=== PATIENT | male | born 1985 | race Caucasian/White ===

== ENCOUNTER 2017-02-12 15:36 | Emergency (ER) | payer SELFPAY ==
--- NOTE | 2017-02-12 16:20 | ER Document Report ---
ED Medical Screen (RME) - General Stated Complaint: PSYCH EVALUATION,TOOTH PAIN Mode of Arrival: Ambulatory Information source: Patient Notes: Patient presents to the emergency department with complaints of suicide ideations. Reports he has thoughts of killing himself. Denies previous suicide attempt. Patient is homeless. Patient has history of bipolar does not take any medications. I have greeted and performed a rapid initial assessment of this patient. A comprehensive ED assessment and evaluation of the patient, analysis of test results and completion of the medical decision making process will be conducted by additional ED providers. TRAVEL OUTSIDE OF THE [place] IN LAST 30 DAYS: No - Related Data Allergies/Adverse Reactions: No Known Allergies Allergy (Unverified 06/23/16 18:33) Past Medical History Endocrine Medical History: Reports: Hx Diabetes Mellitus Type 2 Psychiatric Medical History: Reports: Hx Attention Deficit Hyperactivity Disorder Physical Exam - Vital signs Vitals: Temp Pulse Resp BP Pulse Ox 98.3 F 113 H 14 143/89 H 97 02/12/17 15:39 02/12/17 15:39 02/12/17 15:39 02/12/17 15:39 02/12/17 15:39 Course - Vital Signs Vital signs: Temp Pulse Resp BP Pulse Ox 98.3 F 113 H 14 143/89 H 97 02/12/17 15:39 02/12/17 15:39 02/12/17 15:39 02/12/17 15:39 02/12/17 15:39
--- NOTE | 2017-02-12 18:39 | ER Document Report ---
ED Psych Disorder / Suicide <MIGNON TRACY - Last Filed: 02/12/17 20:36> - General Time seen by provider: 18:15 Mode of Arrival: Ambulatory Information source: Patient TRAVEL OUTSIDE OF THE [place] IN LAST 30 DAYS: No - HPI Patient complains to provider of: Homicidal ideation, Suicidal ideation Onset: Other - see HPI note <CLARIIVONE - Last Filed: 02/12/17 21:08> - General Chief Complaint: Psych Problem Stated Complaint: PSYCH EVALUATION,TOOTH PAIN Notes: The patient additionally had complained at triage about a toothache. When asked about this it is his right lower third molar and it has been hurting for several weeks. (MIGNON TRACY) Patient is a 31 year old male presenting to the ED for suicidal ideation. Patient states he has had depression for the past 3-4 months but it has increased over the past month. Patient states that he has researched methods of suicide for the past month and has not attempted any method. Patient states he has a history of HI and he cut himself with a razor; patient cut the name "Tiffany" into his leg 2 months ago. Patient called [facility] and was told to come here; patient states he knew about [facility] from his grandfather. Patient states he lives with his brother however, triage and RME note states the patient is homeless. Patient also told triage that he has a history of bipolar disorder and is not currently on any medications. Patient states he smokes 1-2 cigarettes per day, drinks EtOH occasionally, smokes marijuana occasionally, and drinks copious amounts of over the counter cough syrup such as Robitussin and/or Delsym DM. When asked if he knew why he had a fast heart rate upon arrival, patient states he drank a bottle of Delsym DM about 4 hours prior to arrival. Patient has no known allergies. (IVONE MONTAGUE) - Related Data Allergies/Adverse Reactions: No Known Allergies Allergy (Unverified 06/23/16 18:33) Past Medical History - General Information source: Patient - Social History Smoking Status: Current Every Day Smoker Cigarette use (# per day): Yes - 1-2 Chew tobacco use (# tins/day): No Frequency of alcohol use: Occasional Drug Abuse: Marijuana, Other - cough syrup Family History: None Patient has suicidal ideation: Yes Patient has homicidal ideation: Yes Endocrine Medical History: Reports: Hx Diabetes Mellitus Type 2 - no meds, diet controlled Psychiatric Medical History: Reports: Hx Attention Deficit Hyperactivity Disorder, Hx Bipolar Disorder Surgical Hx: Negative <IVONE MONTAGUE - Last Filed: 02/12/17 21:08> Review of Systems - Review of Systems Constitutional: No symptoms reported EENT: No symptoms reported Cardiovascular: No symptoms reported Respiratory: No symptoms reported Gastrointestinal: No symptoms reported Genitourinary: No symptoms reported Male Genitourinary: No symptoms reported Musculoskeletal: No symptoms reported Skin: No symptoms reported Hematologic/Lymphatic: No symptoms reported Neurological/Psychological: See HPI, Depression, Suicidal ideation -: Yes All other systems reviewed and negative <IVONE MONTAGUE - Last Filed: 02/12/17 21:08> Physical Exam - HEENT Mouth/Lips: Other - Several severely decayed teeth. The right lower third molar has the front half broken off in the back part is partially hollowed out. It is a little tender. There is no gum edema. The second molar adjacent to that is broken off at the gumline. Several other molars are broken off as well. <MIGNON TRACY - Last Filed: 02/12/17 20:36> - Vital signs Interpretation: Tachycardic - General General appearance: Appears well, Alert In distress: Mild - HEENT Head: Normocephalic, Atraumatic Eyes: Normal Pupils: PERRL Mucous membranes: Moist - Respiratory Respiratory status: No respiratory distress Chest status: Nontender Breath sounds: Normal Chest palpation: Normal - Cardiovascular Rhythm: Regular, Tachycardia Heart sounds: Normal auscultation Murmur: No - Abdominal Inspection: Normal Distension: No distension Bowel sounds: Normal Tenderness: Nontender Organomegaly: No organomegaly - Back Back: Normal, Nontender - Extremities General upper extremity: Normal inspection, Normal ROM, Normal strength General lower extremity: Normal ROM, Normal strength, Other - healed superficial cuts into the right thigh that spell the name Tiffany - Neurological Neuro grossly intact: Yes Cognition: Normal Orientation: AAOx4 Gustavo Coma Scale Eye Opening: Spontaneous Gustavo Coma Scale Verbal: Oriented Gustavo Coma Scale Motor: Obeys Commands [place] Coma Scale Total: 15 Speech: Normal - Psychological Associated symptoms: Normal affect, Anxious - Skin Skin Temperature: Warm Skin Moisture: Dry <IVONE MONTAGUE - Last Filed: 02/12/17 21:08> - Vital signs Vitals: Temp Pulse Resp BP Pulse Ox 98.3 F 113 H 14 143/89 H 97 02/12/17 15:39 02/12/17 15:39 02/12/17 15:39 02/12/17 15:39 02/12/17 15:39 Course - Laboratory Result Diagrams: 02/12/17 18:25 02/12/17 18:25 - EKG Interpretation by [place] EKG shows normal: Sinus rhythm, [place], Intervals, QRS Complexes, ST-T Waves Rate: Tachycardia - 121 <MIGNON TRACY - Last Filed: 02/12/17 20:36> - Laboratory Result Diagrams: 02/12/17 18:25 02/12/17 18:25 <IVONE MONTAGUE - Last Filed: 02/12/17 21:08> - Vital Signs Vital signs: Temp Pulse Resp BP Pulse Ox 98.3 F 113 H 14 143/89 H 97 02/12/17 15:39 02/12/17 15:39 02/12/17 15:39 02/12/17 15:39 02/12/17 15:39 - Laboratory Laboratory results interpreted by md: 02/12/17 02/12/17 17:57 18:25 POC Glucose 134 H Calcium 10.5 H Salicylates < 1.0 L Acetaminophen < 10 L Discharge <MIGNON TRACY - Last Filed: 02/12/17 20:36> <IVONE MONTAGUE - Last Filed: 02/12/17 21:08> - Discharge Clinical Impression: Suicidal ideation, Substance abuse Depression Qualifiers: Depression Type: unspecified Qualified Code(s): F32.9 - Major depressive disorder, single episode, unspecified Condition: Stable Disposition: PSYCH HOSP/UNIT Scribe Documentation - Scribe Written by Scribe:: Ivone Montague 02/12/17 18:50 acting as scribe for :: Cesar <IVONE MONTAGUE - Last Filed: 02/12/17 21:08>
[2017-02-12 18:58] LABS: ABSOLUTE BASOPHILS # (AUTO) 0.1 10^3/uL (0.0-0.2); ABSOLUTE EOSINOPHILS # (AUTO) 0.2 10^3/uL (0.0-0.6); ABSOLUTE LYMPHOCYTES (AUTO) 2.6 10^3/uL (0.5-4.7); ABSOLUTE MONOCYTES (AUTO) 0.5 10^3/uL (0.1-1.4); ABSOLUTE NEUT (AUTO) 5.3 10^3/uL (1.7-8.2); BASOPHILS % (AUTO) 0.9 % (0-2); EOSINOPHILS % (AUTO) 2.1 % (0-6); HEMATOCRIT 44.8 % (37.9-51.0); HEMOGLOBIN 15.5 g/dL (13.5-17.0); HGB HCT DIFFERENCE 1.7; LYMPHOCYTES % (AUTO) 29.8 % (13-45); MEAN CORPUSCULAR HEMOGLOBIN 29.7 pg (27.0-33.4); MEAN CORPUSCULAR HGB CONC 34.6 g/dL (32.0-36.0); MEAN CORPUSCULAR VOLUME 86 fl (80-97); RED BLOOD COUNT 5.22 10^6/uL (4.35-5.55); RED CELL DISTRIBUTION WIDTH 13.2 % (11.5-14.0); SEGMENTED NEUTROPHILS % (AUTO) 61.2 % (42-78); WHITE BLOOD COUNT 8.7 10^3/uL (4.0-10.5)
[2017-02-12 19:24] LABS: ALANINE AMINOTRANSFERASE 35 U/L (21-72); ALBUMIN 4.8 g/dL (3.5-5.0); ALCOHOL < 10 mg/dL (NONE DETECTED); ALKALINE PHOSPHATASE 73 U/L (38-126); ANION GAP 17 (5-19); ASPARTATE AMINO TRANSFERASE 25 U/L (17-59); BILIRUBIN,DIRECT 0.3 mg/dL (0.0-0.4); BILIRUBIN,TOTAL 0.6 mg/dL (0.2-1.3); BLOOD UREA NITROGEN 16 mg/dL (7-20); CALCIUM 10.5 mg/dL (8.4-10.2); CARBON DIOXIDE 26 mmol/L (22-30); CHLORIDE 102 mmol/L (98-107); CREATININE RESULT 0.82 mg/dL (0.52-1.25); GLUCOSE 101 mg/dL (75-110); POTASSIUM 4.2 mmol/L (3.6-5.0); SODIUM 144.8 mmol/L (137-145); TOTAL PROTEIN 7.9 g/dL (6.3-8.2)
--- NOTE | 2017-02-13 00:15 | EKG REPORT ---
SEVERITY:- OTHERWISE NORMAL ECG - SINUS TACHYCARDIA : Confirmed by: Lowell Tilley 13-Feb-2017 00:15:05
[2017-02-13 05:20] LABS: APPEARANCE,URINE CLEAR; BILIRUBIN,URINE NEGATIVE (NEGATIVE); GLUCOSE, URINE 50 mg/dL (NEGATIVE); KETONES,URINE NEGATIVE (NEGATIVE); LEUKOCYTE ESTERASE,URINE NEGATIVE (NEGATIVE); NITRITE,URINE NEGATIVE (NEGATIVE); PROTEIN,URINE NEGATIVE (NEGATIVE); URINE SPECIFIC GRAVITY 1.028; UROBILINOGEN,URINE NEGATIVE mg/dL (<2.0)
[2017-02-13 05:33] LABS: URINE BARBITURATES SCREEN NEGATIVE; URINE METHADONE SCREEN NEGATIVE; URINE OPIATES LOW UNCONFIRMED POSITIVE; URINE PHENCYCLIDINE SCREEN UNCONFIRMED POSITIVE
--- NOTE | 2017-02-13 09:05 | ER Document Report ---
Doctor's Note Notes: 02/13/17 09:04 Provider note: The patient is a 31-year-old man with a history of bipolar affective disorder that presented to the emergency room with suicidal ideation in the setting of depression for the past 3-4 months. The patient had reported abuse of over-the- counter cough medicines. This morning, the patient is resting comfortably and in no distress. He is alert and oriented 3. He denies complaints at this time. On physical exam, he does have dental caries but no obvious infection. His lungs are clear and his heart is mildly tachycardic at a rate of 102. He is without murmurs. His abdomen is soft and benign. His extremities are without significant swelling. His skin is clear. Assessment/plan: Depression, suicidal ideation: Patient denies any suicidal ideation at this time. He is awaiting psychiatric evaluation. Tachycardia: [place] most likely due to [id number] dextromethorphan abuse. The patient states he was taking this for the "high" as well as "pain in his teeth". 02/13/17 11:46 Discussed case with the case with the psychiatry social work nurse was consult at the case with Dr. Galan. From a psychiatric standpoint, they feel the patient is stable for outpatient follow-up. Given the patient is medically stable, he will be discharged with outpatient psychiatric care. I've given him a referral to [facility].
--- NOTE | 2017-02-13 09:30 | PSYCHOLOGICAL NOTE ---
Psych Note - Psych Note Psych Note: Patient is a 31-year-old male who presented overnight with complaints of SI. Patient reportedly called [facility] who instructed him to come to this ER. Patient was noted to have a history of bipolar disorder as well as substance abuse. Patient's toxicology did substantiate this and he was positive for opiates, phencyclidine, and THC. Patient had reportedly been researching ways to commit suicide. Patient was placed on involuntary commitment by [facility] and held for evaluation. Patient this morning states he needs to go inpatient to address his behaviors and depression. Patient states he has been having a hard time secondary to financial stressors due to inability to find a job, which has restricted his ability to engage in treatment. Patient states he has been staying with his brother, but his brother is moving into a house with friends, and because he does not have money, he cannot go resulting in pending homelessness. Discussed with patient his concerns , to include recent excessive shoplifting. Patient states it has gotten to the point that he has a ticket to appear in court due to shoplifting. Patient states he has looked for employment in [place] where he currently resides, but all within walking distances are not hiring and he does not have a license due to prior DUI. Patient states he feels as though there is no future. He denies wanting to by suicide. Patient denies homicidal ideations, intent, plan, or means. Discussed with patient the purposes of outpatient treatment and services available via possible state funding. Patient is A&O. Mood is euthymic with normal affect. Patient denies suicidal/ homicidal ideations, intent, plan, or means. Patient denies A/V H; delusions not noted. Thought processes were goal oriented towards going inpatient. Conversational speech was WNL for rate, tone, and prosody. Intellectual abilities were estimated within low average range. Attention and focus were poor. Insight, judgment, and impulse control were poor. Unspecified bipolar disorder per history Polysubstance abuse Patient is psychiatrically cleared for discharge and recommended for rescind IVC. Patient states he needs to address his behaviors/symptoms, which is best served to do so through outpatient counseling. Patient denies SA, except cough syrup and states he does not know what would have been the opiate he tested positive for. Patient states last night was "mostly a blurr." Patient was provided resources and encouraged to follow up as walk in at [facility] [address] for a substance assessment and possible treatment. Patient does indicate his brother would be willing to assist him with following up as a walk in. Patient provided resources. I consulted with Dr. Galan in regards to the care and management of this patient.
[2017-02-13 11:03] LABS: THYROID STIMULATING HORMONE 0.74 uIU/mL (0.47-4.68)
[2017-02-13 12:00] VITALS: BP 138/91
== END 2017-02-13 12:05 | disposition home or self-care (01) ==
LOC: ER 15:36
DX: R45.851 Suicidal ideations (principal); F32.9 Major depressive disorder, single episode, unspecified; F19.10 Other psychoactive substance abuse, uncomplicated; E11.9 Type 2 diabetes mellitus without complications; K08.9 Disorder of teeth and supporting structures, unspecified; F17.210 Nicotine dependence, cigarettes, uncomplicated; F31.9 Bipolar disorder, unspecified; Z59.0 Homelessness; R00.0 Tachycardia, unspecified
CPT/HCPCS: 36415; 80053; 80307; 81001; 82962; 84439; 84443; 85025; 93005; 93010; 99285

== ENCOUNTER 2017-07-10 20:39 | Emergency (ER) | payer OTHER ==
[2017-07-10] MEDS ORDERED: ACETAMINOPHEN 325 MG TABLET PO ONE (20:56)
--- NOTE | 2017-07-10 21:49 | RADIOLOGY REPORT (SQ) ---
EXAM DESCRIPTION: HAND RIGHT 3 VIEWS COMPLETED DATE/TIME: 07/10/2017 9:42 pm REASON FOR STUDY: crushing injury COMPARISON: None. EXAM PARAMETERS: NUMBER OF VIEWS: Three views. TECHNIQUE: AP, lateral and oblique radiographic images acquired of the right hand. LIMITATIONS: None. FINDINGS: MINERALIZATION: Normal. BONES: No acute fracture or dislocation. No worrisome bone lesions. JOINTS: No effusions. SOFT TISSUES: No soft tissue swelling. No foreign body. OTHER: No other significant finding. IMPRESSION: NEGATIVE STUDY OF THE RIGHT HAND. NO RADIOGRAPHIC EVIDENCE OF ACUTE INJURY. TECHNICAL DOCUMENTATION: JOB ID: [id number] [employer]- All Rights Reserved
--- NOTE | 2017-07-11 00:19 | ER Document Report ---
HPI - HPI Patient complains to provider of: right middle finger injury Pain Level: 4 Context: Patient is a 31-year-old male comes emergency department for chief complaint of right middle finger injury, he states he was at work and he accidentally caught his finger in between 2 steel beams. He denies any other injuries. He is not up-to-date on his tetanus. - CARDIOVASCULAR Cardiovascular: DENIES: Chest pain - DERM Skin Color: Normal, [place], Other Past Medical History - General Information source: Patient - Social History Smoking Status: Never Smoker Chew tobacco use (# tins/day): No Drug Abuse: None Lives with: Family Family History: None Endocrine Medical History: Reports: Hx Diabetes Mellitus Type 2 - no meds, diet controlled Renal/ Medical History: Denies: Hx Peritoneal Dialysis Psychiatric Medical History: Reports: Hx Attention Deficit Hyperactivity Disorder, Hx Bipolar Disorder Surgical Hx: Negative - Immunizations Immunizations up to date: Yes Hx Diphtheria, Pertussis, Tetanus Vaccination: Yes Vertical Provider Document - CONSTITUTIONAL General Appearance: WD/WN, No Apparent Distress - INFECTION CONTROL TRAVEL OUTSIDE OF THE [place] IN LAST 30 DAYS: No - HEENT HEENT: Atraumatic, Normocephalic - NECK Neck: Normal Inspection - RESPIRATORY Respiratory: Breath Sounds Normal O2 Sat by Pulse Oximetry: 96 - CARDIOVASCULAR Cardiovascular: Regular Rate, Regular Rhythm - GI/ABDOMEN Gastrointestinal: Abdomen Soft, Abdomen Non-Tender - MUSCULOSKELETAL/EXTREMETIES Musculoskeletal/Extremeties: Tender - Right third digit with a avulsion of the skin over the PIP and up towards the DIP. Normal ROM of the finger, no open wounds; normal cap refill and sensation; normal examination otherwise Course - Re-evaluation Re-evalutation: X-ray reviewed and shows no fractures. Examination shows no open wounds or concerning deficits. Shows avulsion injury of the skin superficially. Area was cleaned, dressed with Xeroform and bulky dressing, discussed care of this, follow-up, return precautions. Tetanus updated. Patient states understanding and agreement. - Vital Signs Vital signs: Temp Pulse Resp BP Pulse Ox 97.8 F 106 H 16 129/82 H 96 07/10/17 20:49 07/10/17 20:49 07/10/17 20:49 07/10/17 20:49 07/10/17 20:49 Discharge - Discharge Clinical Impression: Skin avulsion Finger injury Qualifiers: Encounter type: initial encounter Laterality: right Qualified Code(s): S69.91XA - Unspecified injury of right wrist, hand and finger(s), initial encounter Condition: Stable Disposition: HOME, SELF-CARE Additional Instructions: The x-ray of the finger is normal. Examination shows soft tissue swelling and skin avulsion. I recommend keeping the current Xeroform dressing on for the next 2-3 days, afterwards keep clean with soap and water, apply topical antibiotic and a dressing. Return immediately for any signs of infection including redness, swelling, discolored drainage, or any other concerning symptoms. Forms: Return to Work
[2017-07-11 00:29] VITALS: BP 120/67
== END 2017-07-11 00:25 | disposition home or self-care (01) ==
LOC: ER 20:39
DX: S61.202A Unspecified open wound of right middle finger without damage to nail, initial encounter (principal); W23.0XXA Caught, crushed, jammed, or pinched between moving objects, initial encounter; Y93.89 Activity, other specified; Y99.0 Civilian activity done for income or pay; E11.9 Type 2 diabetes mellitus without complications; Z23 Encounter for immunization
CPT/HCPCS: 99283

== ENCOUNTER 2018-07-18 19:14 | Emergency (ER) | payer SELFPAY ==
[2018-07-18] MEDS ORDERED: IBUPROFEN 800 MG TABLET PO ONE (19:49)
[2018-07-18] MEDS ORDERED: PENICILLIN V POTASSIUM 500 MG TABLET PO ONE (19:49)
--- NOTE | 2018-07-18 19:57 | ER Document Report ---
ED Oral Problem - General Chief Complaint: Toothache Stated Complaint: TOOTHACHE Time Seen by Provider: 07/18/18 19:38 Mode of Arrival: Ambulatory Information source: Patient Notes: 32-year-old male presents to ED for complaint of dental pain for times a week. He states he has had dental pain off and on for 3 years but is been worse for the last week. States she has not been to a dentist. He states he had this bad about a year ago got antibiotics got better and then did not go to the dentist. Patient is alert and oriented respirations regular and unlabored speaking in full sentences. Patient does smoke a half pack a day and was instructed that this is not helping his dental pain. Patient states he just finished smoking a cigarette in his pulse is always high after he smokes a cigarette. TRAVEL OUTSIDE OF THE [place] IN LAST 30 DAYS: No - HPI Patient complains to provider of: Toothache Onset: Other - 2-3 years Onset: Gradual Quality of pain: Sharp, Throbbing Severity: Severe Pain Level: 5 Associated symptoms: Toothache Worsened by: Cold Similar symptoms previously: Yes Recently seen / treated by doctor/dentist: No - Related Data Allergies/Adverse Reactions: No Known Allergies Allergy (Verified 07/18/18 19:20) Past Medical History - General Information source: Patient - Social History Smoking Status: Current Every Day Smoker Cigarette use (# per day): Yes - Half pack a day Chew tobacco use (# tins/day): No Smoking Education Provided: Yes - 4 minutes Frequency of alcohol use: None Drug Abuse: None Lives with: Friend Family History: None Patient has suicidal ideation: No Patient has homicidal ideation: No - Past Medical History Cardiac Medical History: Reports: None Pulmonary Medical History: Reports: None EENT Medical History: Reports: None Neurological Medical History: Reports: None Endocrine Medical History: Reports: Hx Diabetes Mellitus Type 2 - no meds, diet controlled Renal/ Medical History: Reports: None Malignancy Medical History: Reports None GI Medical History: Reports: None Musculoskeletal Medical History: Reports None Skin Medical History: Reports None Psychiatric Medical History: Reports: Hx Attention Deficit Hyperactivity Disorder, Hx Bipolar Disorder Traumatic Medical History: Reports: None Infectious Medical History: Reports: None Surgical Hx: Negative Past Surgical History: Reports: None - Immunizations Immunizations up to date: Yes Hx Diphtheria, Pertussis, Tetanus Vaccination: Yes Review of Systems - Review of Systems Constitutional: No symptoms reported EENT: Dental problem Cardiovascular: No symptoms reported Respiratory: No symptoms reported Gastrointestinal: No symptoms reported Genitourinary: No symptoms reported Male Genitourinary: No symptoms reported Musculoskeletal: No symptoms reported Skin: No symptoms reported Hematologic/Lymphatic: No symptoms reported Neurological/Psychological: No symptoms reported -: Yes All other systems reviewed and negative Physical Exam - Vital signs Vitals: Temp Pulse BP Pulse Ox 98.4 F 117 H 139/95 H 98 07/18/18 19:36 07/18/18 19:36 07/18/18 19:36 07/18/18 19:36 Interpretation: Normal - General General appearance: Appears well, Alert - HEENT Head: Normocephalic, Atraumatic Eyes: Normal Pupils: PERRL Ears: Normal External canal: Normal Tympanic membrane: Normal Sinus: Normal Nasal: Normal Mouth/Lips: Caries - Right third lower molar very painful at this time has multiple other dental cavities Pharynx: Normal Neck: Anterior cervical chain - Respiratory Respiratory status: No respiratory distress Chest status: Nontender Breath sounds: Normal Chest palpation: Normal - Cardiovascular Rhythm: Regular Heart sounds: Normal auscultation Murmur: No - Abdominal Inspection: Normal Distension: No distension Bowel sounds: Normal Tenderness: Nontender Organomegaly: No organomegaly - Back Back: Normal, Nontender - Extremities General upper extremity: Normal inspection, Nontender, Normal color, Normal ROM , Normal temperature General lower extremity: Normal inspection, Nontender, Normal color, Normal ROM , Normal temperature, Normal weight bearing. No: Mickey's sign - Neurological Neuro grossly intact: Yes Cognition: Normal Orientation: AAOx4 Gustavo Coma Scale Eye Opening: Spontaneous Gustavo Coma Scale Verbal: Oriented [place] Coma Scale Motor: Obeys Commands Gustavo Coma Scale Total: 15 Speech: Normal Motor strength normal: LUE, RUE, LLE, RLE Sensory: Normal - Psychological Associated symptoms: Normal affect, Normal mood - Skin Skin Temperature: Warm Skin Moisture: Dry Skin Color: Normal Course - Re-evaluation Re-evalutation: 07/18/18 21:04 Patient was treated with Penicillin VK and ibuprofen for his dental pain. Patient was instructed to follow-up with his dentist. Presentation is most consistent with likely an infected tooth. Airway is patent. Vitals within normal limits. Patient is able swallow without any difficulty. There is no significant facial swelling. No evidence of Gaurang angina, apical abscess, or airway obstruction. Patient will be started on antibiotics. I've instructed to follow-up with dentistry as earliest ability for definitive management. At this time will discharge with return precautions and follow-up recommendations. Verbal discharge instructions given a the bedside and opportunity for questions given. Medication warnings reviewed. Patient is in agreement with this plan and has verbalized understanding of return precautions and the need for primary care follow-up in the next 24-72 hours. - Vital Signs Vital signs: Temp Pulse Resp BP Pulse Ox 98.4 F 117 H 139/95 H 98 07/18/18 19:36 07/18/18 19:36 07/18/18 19:36 07/18/18 19:36 Discharge - Discharge Clinical Impression: Pain due to dental caries Condition: Stable Disposition: HOME, SELF-CARE Additional Instructions: TOOTHACHE: Your pain is due to dental decay. The tooth must be repaired in order for you to feel better. You will, therefore, be referred to a dentist. We do not have dentists on the staff at [facility]. Severe swelling or drainage around a tooth usually means a dental abscess. This also requires evaluation and treatment by the dentist, but antibiotics may be prescribed while awaiting dental treatment. You should be rechecked immediately if you develop major swelling of the face, increasing pain, a lump in the jaw or gums, headache, difficulty swallowing, or fever. PENICILLIN V K: You have been given a prescription for Penicillin VK. Your physician has determined that this is the best antibiotic for your condition. Pen VK can be taken with meals, however more of the antibiotic gets into the bloodstream if it's taken on an empty stomach. Penicillin usually has no side effects. However, allergy to penicillins is common. If you have had an allergic reaction to any drug of the penicillin family, you should never take any other penicillin. Notify your doctor at once if you develop hives, itching, swelling, faintness, or shortness of breath. FOLLOW-UP CARE: You have been referred for follow-up care to the dentists listed below. Call the dentists office for an appointment as you were instructed or within the next two days. If you experience worsening or a significant change in your symptoms, notify the physician immediately or return to the Emergency Department at any time for re-evaluation. [facility] [address] [place], [place] [phone] [facility] [address] [place] [address] [facility] [address] [facility] [address] [facility] [address] [facility] [email or web address] [address] [place] [address] Sunday- 8:00am to 5:00 pm Will see patients from other [facility]. Charges based on income and family size and accepts Medicare, Medicaid, and Insurances Will pull molars [facility] [id number] Hours of Operation 8:00 am - 4:30 pm weekdays The following dental offices accept Medicaid: [facility] Dr. Zapien Dr. Victor Dr. Rendon Dr. Rose Jean-Claude Kong [place], and [facility] oral [facility] Dr. Mast ([place]) Dr. Cheng ([place]) [facility] Drs. Jensen and Grant ([place]) Dr. Lee ([place]) [facility] Dr. Galicia ([place]) Drs. Gaytan and ([place]) Medicaid Care Line Prescriptions: Ibuprofen 600 mg PO Q6HP PRN #20 tablet PRN Reason: Penicillin V Potassium [Penicillin Vk 500 mg Tablet] 500 mg PO BID #20 tablet Forms: Smoking Cessation Education, Elevated Blood Pressure
[2018-07-18 20:57] VITALS: BP 139/95
== END 2018-07-18 20:03 | disposition home or self-care (01) ==
LOC: ER 19:14
DX: K02.9 Dental caries, unspecified (principal); K08.89 Other specified disorders of teeth and supporting structures; F17.210 Nicotine dependence, cigarettes, uncomplicated; Z71.6 Tobacco abuse counseling; E11.9 Type 2 diabetes mellitus without complications
CPT/HCPCS: 99282; 99406

== ENCOUNTER 2018-07-26 01:38 | Emergency (ER) | payer SELFPAY ==
--- NOTE | 2018-07-26 04:13 | ER Document Report ---
ED General - General Chief Complaint: Allergy Symptoms Stated Complaint: POSSIBLE ALLERGIC REACTION Time Seen by Provider: 07/26/18 03:51 Mode of Arrival: Ambulatory Information source: Patient Notes: Patient is a 32-year-old male presenting to the emergency department stating he thinks he is having allergic to penicillin. Patient was to the emergency room 5 days ago for tooth ache, prescribed penicillin and has been taking it ever since. Patient states also 5 days ago he started working outside, does not think he has been drinking his normal amount of water, and stated he feels as though his urine was a little bit more concentrated. Patient stated he then googled penicillin allergic reactions and found that dark urine could be an allergic reaction to PCN. Patient presents to ER for same. Patient denies shortness of breath, chest pain, nausea, vomiting, cough, hives. TRAVEL OUTSIDE OF THE [place] IN LAST 30 DAYS: No - Related Data Allergies/Adverse Reactions: No Known Allergies Allergy (Verified 07/18/18 19:20) Past Medical History - General Information source: Patient - Social History Smoking Status: Current Every Day Smoker Chew tobacco use (# tins/day): No Frequency of alcohol use: None Drug Abuse: None Family History: None Patient has suicidal ideation: No Patient has homicidal ideation: No Endocrine Medical History: Reports: Hx Diabetes Mellitus Type 2 - no meds, diet controlled Renal/ Medical History: Denies: Hx Peritoneal Dialysis Psychiatric Medical History: Reports: Hx Attention Deficit Hyperactivity Disorder, Hx Bipolar Disorder - Immunizations Immunizations up to date: Yes Hx Diphtheria, Pertussis, Tetanus Vaccination: Yes Review of Systems - Review of Systems Constitutional: No symptoms reported EENT: No symptoms reported Cardiovascular: No symptoms reported Respiratory: No symptoms reported Gastrointestinal: No symptoms reported Genitourinary: See HPI. denies: Burning, Dysuria, Frequency, Hematuria, Urgency , Retention Male Genitourinary: No symptoms reported Musculoskeletal: No symptoms reported Skin: No symptoms reported Hematologic/Lymphatic: No symptoms reported Neurological/Psychological: No symptoms reported Physical Exam - Vital signs Vitals: Temp Pulse Resp BP Pulse Ox 97.8 F 114 H 20 113/70 100 07/26/18 01:49 07/26/18 01:49 07/26/18 01:49 07/26/18 01:49 07/26/18 01:49 - Notes Notes: GENERAL: Alert, interacts well. No acute distress. HEAD: Normocephalic, atraumatic. EYES: Pupils equal, round, and reactive to light. Extraocular movements intact. ENT: Oral mucosa moist, tongue midline. NECK: Full range of motion. Supple. Trachea midline. LUNGS: Clear to auscultation bilaterally, no wheezes, rales, or rhonchi. No respiratory distress. HEART: Regular rate and rhythm. No murmur ABDOMEN: Soft, non-tender. Non-distended. Bowel sounds present in all 4 quadrants. EXTREMITIES: Moves all 4 extremities spontaneously. No edema, normal radial and dorsalis pedis pulses bilaterally. No cyanosis. BACK: no cervical, thoracic, lumbar midline tenderness. No saddle anesthesia, normal distal neurovascular exam. NEUROLOGICAL: Alert and oriented x3. Normal speech. . PSYCH: Normal affect, normal mood. SKIN: Warm, dry, normal turgor. No rashes or lesions noted. Course - Re-evaluation Re-evalutation: Patient's presentation is not consistent with an allergic reaction. Talked to patient about need for hydration size especially if he is working outside in the heat. Patient denies any abdominal cramping or muscle cramping. Patient states he stopped taking the penicillin 2 days ago and has noticed his urine is "normal now". Patient states he does not have any money to get a new prescription and would like to know if he can continue his PCN. Patient told he can continue penicillin for tooth ache. Hydration status also discussed. Return precautions given - Vital Signs Vital signs: Temp Pulse Resp BP Pulse Ox 97.9 F 93 20 120/71 100 07/26/18 04:42 07/26/18 04:42 07/26/18 01:49 07/26/18 04:42 07/26/18 04:42 Discharge - Discharge Clinical Impression: Toothache, Feared condition not demonstrated Condition: Stable Disposition: HOME, SELF-CARE Instructions: Toothache (OM) Additional Instructions: He has been seen in the emergency department for possible allergic reaction. Your signs and symptoms are not consistent with an allergic reaction. You should continue antibiotics as prescribed. Return to the emergency department should you have any shortness of breath, hives develop, chest discomfort, or increased tooth pain.
[2018-07-26 04:46] VITALS: BP 120/71
== END 2018-07-26 04:46 | disposition home or self-care (01) ==
LOC: ER 01:38
DX: K08.89 Other specified disorders of teeth and supporting structures (principal); F17.200 Nicotine dependence, unspecified, uncomplicated; E11.9 Type 2 diabetes mellitus without complications
CPT/HCPCS: 99283

== ENCOUNTER 2018-11-02 13:49 | Emergency (ER) | payer SELFPAY ==
[2018-11-02] MEDS ORDERED: HYDROCODONE/ACETAMINOPHEN 5-325 MG TABLET PO ONE (14:44)
[2018-11-02] MEDS ORDERED: PENICILLIN V POTASSIUM 500 MG TABLET PO ONE (14:44)
--- NOTE | 2018-11-02 14:46 | ER Document Report ---
HPI - HPI Patient complains to provider of: Dental pain Time Seen by Provider: 11/02/18 14:36 Onset/Duration: Worse Quality of pain: Achy Pain Level: 5 Context: Patient complains of dental pain for the past month that worsened over the past week. Patient reports multiple broken and decayed teeth. Patient denies any fever or facial swelling. Associated Symptoms: denies: Fever, Vomiting Exacerbated by: Denies Relieved by: Denies Similar symptoms previously: Yes Recently seen / treated by doctor: No - ROS ROS below otherwise negative: Yes Systems Reviewed and Negative: Yes All other systems reviewed and negative - CONSTITUTIONAL Constitutional: DENIES: Fever - EENT EENT: DENIES: Sore Throat, Congestion Notes: Dental pain - RESPIRATORY Respiratory: DENIES: Coughing - GASTROINTESTINAL Gastrointestinal: DENIES: Nausea, Patient vomiting - MUSCULOSKELETAL Musculoskeletal: DENIES: Back Pain, Neck Pain - DERM Skin Color: Normal Skin Problems: None Past Medical History - General Information source: Patient - Social History Smoking Status: Never Smoker Frequency of alcohol use: Occasional Drug Abuse: None Lives with: Spouse/Significant other Family History: None Endocrine Medical History: Reports: Hx Diabetes Mellitus Type 2 - no meds, diet controlled Renal/ Medical History: Denies: Hx Peritoneal Dialysis Psychiatric Medical History: Reports: Hx Attention Deficit Hyperactivity Disorder, Hx Bipolar Disorder Surgical Hx: Negative - Immunizations Immunizations up to date: Yes Hx Diphtheria, Pertussis, Tetanus Vaccination: Yes Vertical Provider Document - CONSTITUTIONAL Agree With Documented VS: Yes Exam Limitations: No Limitations General Appearance: WD/WN, No Apparent Distress - INFECTION CONTROL TRAVEL OUTSIDE OF THE [place] IN LAST 30 DAYS: No - HEENT HEENT: Atraumatic, Normocephalic Mouth Diagram: 1 - Dental decay, dental fracture, no gingival abscess, no trismus - NECK Neck: Normal Inspection, Supple. negative: Lymphadenopathy-Left, Lymphadenopathy-Right - RESPIRATORY Respiratory: Breath Sounds Normal, No Respiratory Distress - CARDIOVASCULAR Cardiovascular: Regular Rate, Regular Rhythm - MUSCULOSKELETAL/EXTREMETIES Musculoskeletal/Extremeties: MAEW - NEURO Level of Consciousness: Awake, Alert, Appropriate Motor/Sensory: No Motor Deficit - DERM Integumentary: Warm, Dry, No Rash Course - Vital Signs Vital signs: Temp Pulse Resp BP Pulse Ox 98.0 F 91 16 126/81 H 97 11/02/18 13:51 11/02/18 13:51 11/02/18 13:51 11/02/18 13:51 11/02/18 13:51 Discharge - Discharge Clinical Impression: Toothache Condition: Stable Disposition: HOME, SELF-CARE Instructions: Dentist, Penicillin V K ([facility]), Toothache ([facility]) Additional Instructions: Return immediately for any new or worsening symptoms Followup with your primary care provider, call tomorrow to make a followup appointment Follow-up with a dental care provider Prescriptions: Naproxen [Naprosyn 250 Nmg Tablet] 1 tab PO BID #14 tablet Penicillin V Potassium [Penicillin Vk 500 mg Tablet] 500 mg PO BID #20 tablet Referrals: [facility] [Provider Group] - Follow up as needed
[2018-11-02 15:12] VITALS: BP 122/82
== END 2018-11-02 15:09 | disposition home or self-care (01) ==
LOC: ER 13:49
DX: K08.89 Other specified disorders of teeth and supporting structures (principal); K02.9 Dental caries, unspecified; E11.9 Type 2 diabetes mellitus without complications
CPT/HCPCS: 99283

== ENCOUNTER 2019-04-27 09:44 | Emergency (ER) | payer MEDICAID ==
[2019-04-27 09:51] VITALS: BP 127/76
[2019-04-27] MEDS ORDERED: KETOROLAC TROMETHAMINE 60 MG/2 ML SDV IM ONE (10:15)
--- NOTE | 2019-04-27 10:21 | ER Document Report ---
ED General - General Chief Complaint: Abscess Stated Complaint: ABSCESS Time Seen by Provider: 04/27/19 10:01 TRAVEL OUTSIDE OF THE [place] IN LAST 30 DAYS: No - HPI Notes: Patient is a 33-year-old male who presents to the emergency department for evaluation. First he is complaining of a possible abscess around his right breast. He states he occasionally shaves his chest. Overnight he developed significant redness, pain, and firmness just above his right nipple. He states it was totally normal appearing yesterday. He denies any fevers or chills. No nausea or vomiting. He does relate that his appetite has been slightly decreased. Patient also complains of dental pain. He just recently arranged medical insurance. He needs multiple teeth pulled. He denies any apparent swelling. No difficulty speaking, no swelling of or under the tongue. - Related Data Allergies/Adverse Reactions: No Known Allergies Allergy (Verified 11/02/18 13:50) Past Medical History - General Information source: Patient - Social History Smoking Status: Former Smoker Frequency of alcohol use: Rare Drug Abuse: Marijuana Family History: None Endocrine Medical History: Reports: Hx Diabetes Mellitus Type 2 - no meds, diet controlled Renal/ Medical History: Denies: Hx Peritoneal Dialysis Psychiatric Medical History: Reports: Hx Attention Deficit Hyperactivity Disorder, Hx Bipolar Disorder - Immunizations Immunizations up to date: Yes Hx Diphtheria, Pertussis, Tetanus Vaccination: Yes Review of Systems - Review of Systems Constitutional: No symptoms reported EENT: See HPI Cardiovascular: No symptoms reported Respiratory: No symptoms reported Gastrointestinal: No symptoms reported Genitourinary: No symptoms reported Musculoskeletal: No symptoms reported Skin: See HPI Neurological/Psychological: No symptoms reported Physical Exam - Vital signs Vitals: Temp Pulse Resp BP 98.1 F 79 20 127/76 H 04/27/19 09:50 04/27/19 09:50 04/27/19 09:50 04/27/19 09:50 - Notes Notes: Vital signs reviewed, please refer to chart. Head is normocephalic, atraumatic. Pupils equal round, reactive to light. Oral mucosa is moist. Overall dentition is in extremely poor condition. He is significant decay. He is primarily tender in the area of the second molar on the left mandible. The tooth is broken to the gumline. No significant gingival edema or erythema. No sublingual swelling. Neck is supple without meningismus. Heart is regular rate and rhythm. Lungs are clear to auscultation bilaterally. Examination of the right chest yields a 2 x 3 meter area of induration around both some diffuse erythema. It is consistent with a cellulitis. I do not palpate any fluctuance. No axillary lymphadenopathy is noted. Abdomen is soft, nontender, normoactive bowel sounds throughout. Patient is awake, alert, neurological exam is nonfocal. Course - Re-evaluation Re-evalutation: 04/27/19 10:19 Patient presents emergency department for evaluation. He does have significant dental decay, complains of odontalgia. He is given a shot of Toradol for this. In regards to the chest wall findings, I find this most consistent with a cellulitis. He does not appear to have a drainable abscess at this time. We will go ahead and start him on clindamycin. To cover for any significant oral pathogens, and the most likely etiologies of the cellulitis of the chest wall. He is to keep the area clean with soap and water. Take antibiotics as prescribed. Follow-up with primary care, return to the ED with worsening or new concerning symptoms. I will go ahead and give him our dental care sheet. - Vital Signs Vital signs: Temp Pulse Resp BP Pulse Ox 98.1 F 79 20 127/76 H 04/27/19 09:50 04/27/19 09:50 04/27/19 09:50 04/27/19 09:50 Discharge - Discharge Clinical Impression: Cellulitis of chest wall, Odontalgia Condition: Stable Disposition: HOME, SELF-CARE Instructions: Clindamycin ([facility]), [facility], Cellulitis ([facility]) Additional Instructions: Keep the area clean with soap and water. Warm compresses. Take all the antibiotic as prescribed until gone. Follow-up with primary care next week, return to the ED with worsening or new concerning symptoms of any sort.
== END 2019-04-27 10:47 | disposition home or self-care (01) ==
LOC: ER 09:44
DX: L03.313 Cellulitis of chest wall (principal); K02.9 Dental caries, unspecified; K08.89 Other specified disorders of teeth and supporting structures; R63.0 Anorexia; E11.9 Type 2 diabetes mellitus without complications; F12.10 Cannabis abuse, uncomplicated; Z87.891 Personal history of nicotine dependence
CPT/HCPCS: 99282; J1885

== ENCOUNTER 2020-03-04 18:02 | Emergency (ER) | payer MEDICAID ==
--- NOTE | 2020-03-04 18:22 | ER Document Report ---
ED Medical Screen (RME) - General Chief Complaint: High Blood Sugar Stated Complaint: POSSIBLE HIGH BLOOD SUGAR Notes: Patient is a 34-year-old white male who was reportedly prediabetic who followed up with his primary care provider today and was told that his blood glucose on Accu-Chek was over 500. They gave him a liter of normal saline and rechecked and he states it only went down by like "7 points". He reports they told him to come here for an insulin drip. He states he feels fine physically, has no symptoms. Accu-Chek on intake was 480. I have treated and performed a rapid initial assessment of this patient. A comprehensive ED assessment and evaluation of the patient, analysis of test results and completion of medical decision making process will be conducted by additional ED providers. PHYSICAL EXAMINATION: GENERAL: Well-appearing, well-nourished and in no acute distress. A&Ox4. Answers questions appropriately. TRAVEL OUTSIDE OF THE [place] IN LAST 30 DAYS: No - Related Data Allergies/Adverse Reactions: No Known Allergies Allergy (Verified 11/02/18 13:50) Past Medical History Endocrine Medical History: Reports: Hx Diabetes Mellitus Type 2 - no meds, diet controlled Renal/ Medical History: Denies: Hx Peritoneal Dialysis Psychiatric Medical History: Reports: Hx Attention Deficit Hyperactivity Disorder, Hx Bipolar Disorder - Immunizations Immunizations up to date: Yes Hx Diphtheria, Pertussis, Tetanus Vaccination: Yes Physical Exam - Vital signs Vitals: Temp Pulse Resp BP Pulse Ox 97.7 F 117 H 18 124/89 H 96 03/04/20 18:06 03/04/20 18:06 03/04/20 18:06 03/04/20 18:06 03/04/20 18:06 Course - Vital Signs Vital signs: Temp Pulse Resp BP Pulse Ox 97.7 F 117 H 18 124/89 H 96 03/04/20 18:06 03/04/20 18:06 03/04/20 18:06 03/04/20 18:06 03/04/20 18:06
[2020-03-04 18:57] LABS: ABSOLUTE EOSINOPHILS # (AUTO) 0.1 10^3/uL (0.0-0.6); ABSOLUTE LYMPHOCYTES (AUTO) 1.6 10^3/uL (0.5-4.7); ABSOLUTE MONOCYTES (AUTO) 0.3 10^3/uL (0.1-1.4); ABSOLUTE NEUT (AUTO) 4.2 10^3/uL (1.7-8.2); BASOPHILS % (AUTO) 0.6 % (0-2); EOSINOPHILS % (AUTO) 1.5 % (0-6); HEMATOCRIT 45.3 % (37.9-51.0); HEMOGLOBIN 15.4 g/dL (13.5-17.0); LYMPHOCYTES % (AUTO) 24.9 % (13-45); MEAN CORPUSCULAR HEMOGLOBIN 30.2 pg (27.0-33.4); MEAN CORPUSCULAR VOLUME 89 fl (80-97); MONOCYTES % (AUTO) 5.5 % (3-13); PLATELET COUNT 230 10^3/uL (150-450); RED BLOOD COUNT 5.11 10^6/uL (4.35-5.55); RED CELL DISTRIBUTION WIDTH 12.8 % (11.5-14.0); SEGMENTED NEUTROPHILS % (AUTO) 67.5 % (42-78); TOTAL CELLS COUNTED % (AUTO) 100 %; VENOUS BLOOD BASE EXCESS -0.8 mmol/L; VENOUS BLOOD HCO3 26.7 mmol/L (20-32); VENOUS BLOOD PCO2 54.7 mmHg (35-63); VENOUS BLOOD PH 7.31 (7.30-7.42); WHITE BLOOD COUNT 6.2 10^3/uL (4.0-10.5)
[2020-03-04] MEDS ORDERED: INSULIN REG, HUMAN 100 UNIT/ML 3 ML VIAL (PYX) IV ONE (19:19)
[2020-03-04 19:21] LABS: APPEARANCE,URINE CLEAR; BILIRUBIN,URINE NEGATIVE (NEGATIVE); COLOR,URINE STRAW; GLUCOSE, URINE >=500 mg/dL (NEGATIVE); KETONES,URINE 80 mg/dL (NEGATIVE); PROTEIN,URINE NEGATIVE (NEGATIVE); URINE SPECIFIC GRAVITY 1.027; UROBILINOGEN,URINE NEGATIVE mg/dL (<2.0)
[2020-03-04 19:21] LABS: ALBUMIN 4.2 g/dL (3.5-5.0); ALKALINE PHOSPHATASE 83 U/L (38-126); ANION GAP 9 (5-19); ASPARTATE AMINO TRANSFERASE 31 U/L (17-59); BILIRUBIN,TOTAL 0.4 mg/dL (0.2-1.3); BLOOD UREA NITROGEN 18 mg/dL (7-20); CALCIUM 9.1 mg/dL (8.4-10.2); CARBON DIOXIDE 26 mmol/L (22-30); CHLORIDE 97 mmol/L (98-107); POTASSIUM 4.7 mmol/L (3.6-5.0); TOTAL PROTEIN 6.7 g/dL (6.3-8.2)
[2020-03-04 19:29] LABS: GLUCOSE 567 mg/dL (75-110)
--- NOTE | 2020-03-04 19:31 | ER Document Report ---
ED General - General Chief Complaint: High Blood Sugar Stated Complaint: POSSIBLE HIGH BLOOD SUGAR Time Seen by Provider: 03/04/20 19:17 Mode of Arrival: Ambulatory Information source: Patient Notes: Ruthann note;Patient is a 34-year-old white male who was reportedly prediabetic who followed up with his primary care provider today and was told that his blood glucose on Accu-Chek was over 500. They gave him a liter of normal saline and rechecked and he states it only went down by like "7 points". He reports they told him to come here for an insulin drip. He states he feels fine physically, has no symptoms. Accu-Chek on intake was 480. My note; 34-year-old male arrives with chief complaint of new onset of IDDM with greater than 500 blood sugar. Patient reports 1 year ago he weighed 230 pounds and began to exercise by walking martial arts sit ups and push-ups and stopping his addiction to sugar laden catie and soft drinks with multiple liters each day. Patient went on Medicaid disability recently and went to go get a physical and found 1 week ago that he had high blood sugars. He has been having achiness of his arms and legs. Patient has been also because of exer cising more increasing from water to 12 ounces of catie again. TRAVEL OUTSIDE OF THE [place] IN LAST 30 DAYS: No - HPI Onset: Just prior to arrival Onset/Duration: Sudden Quality of pain: No pain Severity: Mild Associated symptoms: Body/muscle aches Exacerbated by: Denies Relieved by: Denies Similar symptoms previously: No Recently seen / treated by doctor: Yes - Related Data Allergies/Adverse Reactions: No Known Allergies Allergy (Verified 11/02/18 13:50) Past Medical History - Social History Smoking Status: Never Smoker Chew tobacco use (# tins/day): No Frequency of alcohol use: None Drug Abuse: None Family History: None Patient has suicidal ideation: No Patient has homicidal ideation: No Endocrine Medical History: Reports: Hx Diabetes Mellitus Type 2 - no meds, diet controlled Renal/ Medical History: Denies: Hx Peritoneal Dialysis Psychiatric Medical History: Reports: Hx Attention Deficit Hyperactivity Disorder, Hx Bipolar Disorder - Immunizations Immunizations up to date: Yes Hx Diphtheria, Pertussis, Tetanus Vaccination: Yes Physical Exam - Vital signs Vitals: Temp Pulse Resp BP Pulse Ox 97.7 F 117 H 18 124/89 H 96 03/04/20 18:06 03/04/20 18:06 03/04/20 18:06 03/04/20 18:06 03/04/20 18:06 Interpretation: Tachycardic - General General appearance: Appears well - HEENT Head: Normocephalic, Atraumatic Eyes: Normal Cornea: Normal Extraocular movements intact: Yes Eyelashes: Normal Pupils: PERRL Sinus: Normal Nasal: Normal Mouth/Lips: Normal Mucous membranes: Dry Pharynx: Normal Neck: Normal - Respiratory Respiratory status: No respiratory distress Chest status: Nontender Breath sounds: Normal Chest palpation: Normal - Cardiovascular Rhythm: Tachycardia Heart sounds: Normal auscultation Murmur: No Friction rub: No Matheus's crunch: No - Abdominal Inspection: Normal Distension: No distension Bowel sounds: Normal Tenderness: Nontender Organomegaly: No organomegaly - Rectal Hemorrhoids: Other - deferred - Back Back: Normal - Extremities General upper extremity: Normal inspection, Other - Except for tattoos General lower extremity: Normal inspection - Neurological Neuro grossly intact: Yes Cognition: Normal Orientation: AAOx4 Gustavo Coma Scale Eye Opening: Spontaneous [place] Coma Scale Verbal: Oriented Gustavo Coma Scale Motor: Obeys Commands [place] Coma Scale Total: 15 Speech: Normal Cranial nerves: Normal Cerebellar coordination: Normal Motor strength normal: LUE, RUE, LLE, RLE - Psychological Associated symptoms: Normal affect - Skin Skin Temperature: Warm Skin Moisture: Dry Course - Vital Signs Vital signs: Temp Pulse Resp BP Pulse Ox 97.7 F 117 H 18 124/89 H 96 03/04/20 18:06 03/04/20 18:06 03/04/20 18:06 03/04/20 18:06 03/04/20 18:06 - Laboratory Result Diagrams: 03/04/20 18:40 03/04/20 18:40 Laboratory results interpreted by me: 03/04/20 03/04/20 03/04/20 18:19 18:40 19:02 Sodium 132.1 L Chloride 97 L Glucose 567 H* POC Glucose 480 H* Lipase 413.8 H Urine Glucose (UA) >=500 H Urine Ketones 80 H Critical Care Note - Critical Care Note Total time excluding time spent on procedures (mins): 90 Comments: I discussed this case with Dr. Abdirashid Mensah and he advises the patient may go home after evaluating the labs Discharge - Discharge Clinical Impression: IDDM (insulin dependent diabetes mellitus), Tachycardia, Elevated lipase Condition: Good Disposition: HOME, SELF-CARE Additional Instructions: Follow-up with your personal doctor tomorrow and return to ER as needed encourage fluids and avoid any sodas with high sugar levels. Try to drink water if possible and take medicines as directed. We will attempt oral medications before insulin medication but will need education about diabetes and fingerstick blood sugars at home. Speak to your personal doctor about this tomorrow. Prescriptions: Glyburide [Diabeta 5 mg Tablet] 5 mg PO QAM #30 tablet Metformin HCl [Glucophage 500 mg Tablet] 500 mg PO BID #60 tablet Forms: Return to Work
[2020-03-04] MEDS: NORMAL SALINE 1000 ML 1,000 ML IV PRN ×2 (19:48→20:33)
[2020-03-04] MEDS ORDERED: GLYBURIDE 5 MG TABLET PO ONE (21:23)
[2020-03-04 21:54] VITALS: BP 117/87
== END 2020-03-04 21:55 | disposition home or self-care (01) ==
LOC: ER 18:02
DX: E11.9 Type 2 diabetes mellitus without complications (principal); R00.0 Tachycardia, unspecified; R79.89 Other specified abnormal findings of blood chemistry; M79.603 Pain in arm, unspecified; M79.606 Pain in leg, unspecified; M79.10 Myalgia, unspecified site
CPT/HCPCS: 99285; 36415; 82962; 83690; 85025; 80053; 81001; 82803; J3490; J1815; J7030